=== PATIENT | female | born 1990 | race African-American/Black ===

== ENCOUNTER 2020-10-18 07:38 | Outpatient (CLI) | payer OTHER, SELFPAY ==
--- NOTE | 2020-10-18 | ECG_ITS ---
Measurements Intervals [place] Rate: 73 P: 50 MT: 175 QRS: 27 QRSD: 95 T: 4 QT: 378 QTc: 417 Interpretive Statements SINUS RHYTHM CONSIDER INFERIOR INFARCT, AGE INDETERMINATE ABNORMAL ECG Electronically Signed On 10-18-2020 8:41:24 CDT by Raul Balderas D.O.
[2020-10-18 08:19] LABS: Hematocrit 38.9 % (37.0-47.0); Hemoglobin 12.7 g/dL (12.0-15.0); Mean Corpuscular HGB Conc 32.6 g/dl (32-36); Mean Corpuscular Hemoglobin 31.4 pg (26-34); Mean Platelet Volume 10.1 fl (7.4-10.4); Platelet Count Result 327 k/mm3 (150-375); Red Blood Count 4.05 M/mm3 (4.2-5.4); Red Cell Distribution Width 12.3 % (11.5-14.5); White Blood Count 9.6 K/mm3 (4.5-10.0)
[2020-10-18 08:32] LABS: Alanine Aminotransferase 52 U/L (4-35); Albumin Level 3.9 g/dL (3.5-5.1); Alkaline Phosphatase 48 U/L (38-126); Anion Gap 9 mmol/L (8-16); Aspartate Amino Transferase 50 U/L (14-36); Bilirubin,Total 1.3 mg/dL (0.2-1.3); Blood Urea Nitrogen 10 mg/dL (7-17); Calcium 8.7 mg/dL (8.4-10.2); Carbon Dioxide 25 mmol/L (22-30); Chloride 104 mmol/L (98-107); Estimated Glomerular Filt Rate > 60; Glucose 78 mg/dL (65-105); Potassium 3.8 mmol/L (3.4-5.0); Sodium 138 mmol/L (137-145)
== END 2020-10-18 07:39 | disposition home or self-care (01) ==
DX: Z01.818 Encounter for other preprocedural examination (principal); E66.01 Morbid (severe) obesity due to excess calories; R94.31 Abnormal electrocardiogram [ECG] [EKG]
CPT/HCPCS: 36415; 80053; 85027; 93005

== ENCOUNTER 2021-05-22 18:12 | Emergency (ER) | payer OTHER, SELFPAY ==
[2021-05-22 18:27] VITALS: BP 105/63; PULSE 70; RESP 14; TEMP 37.4; O2SAT 99
--- NOTE | 2021-05-22 18:34 | ED.URI ---
HPI - URI/Sore Throat General Chief Complaint: Upper Respiratory Infection Stated Complaint: sore throat Time Seen by Provider: 05/22/21 18:34 Source: patient and family History of Present Illness HPI Narrative: Patient presents with a sore throat and feels that she has strep throat. Patient is tested in her place of employment for COVID and recently had a negative rapid COVID-19 test. Patient denies any other symptoms. No trouble swallowing and no drooling. Patient just request a strep throat test at this time. Related Data Home Medications Medication Instructions Recorded Confirmed No Home Medications 05/22/21 05/22/21 Allergies Allergy/AdvReac Type Severity Reaction Status Date / Time No Known Allergies Allergy Verified 05/22/21 18:42 Review of Systems Review of Systems: CONSTITUTIONAL: Denies chills, or sweats. Reports fever and generalized body aches EYES: Denies visual changes, redness, or discharge. ENT: Denies otalgia. Reports nasal congestion runny nose and sore throat CARDIOVASCULAR: Denies chest pain, palpitations, or edema. RESPIRATORY: Denies dyspnea. Reports occasional cough GASTROINTESTINAL: Denies abdominal pain, nausea, vomiting, or diarrhea. GENITOURINARY: Denies dysuria or hematuria. SKIN: Denies rash or itching. MUSCULOSKELETAL: Denies back pain, joint pain, or myalgia. Reports generalized body aches NEUROLOGIC: Denies headache, numbness, or weakness. PSYCHIATRIC: Denies anxiety or depression. PMFSH Comments At time of signature, agree with nursing past medical, surgical, social and family history. There is no relevant family history pertinent to the presenting complaint Exam Narrative: The patient is a well-developed, well-nourished in no acute distress. SKIN: Skin is warm and dry without erythema, swelling or exudate. There is good turgor. No tenting. HEAD: Atraumatic. Normocephalic. No temporal or scalp tenderness. EYES: Moist and bright. Sclera and conjunctivae normal. No discharge. PERRLA. Extraocular motions intact. Gross visual acuity intact. EARS: Pinna is normal shape and contour. Clear external auditory canals. TM pearly loya with good cone of light, no erythema or suppuration. Bilateral cerumen noted no gross hearing deficit. NOSE: pink, moist mucosa with good air movement. Clear rhinorrhea without nasal flaring. Septum midline. Mouth: moist mucous membranes. THROAT; mild erythema noted to posterior oropharynx with moderate postnasal drainage. Without exudate or ulceration.. Uvula midline. Normal movement of soft palate. NECK: Supple and nontender with full range of motion without discomfort. No meningeal signs. LUNGS: Equal and bilateral breath sounds without wheezes, rales or rhonchi. CHEST: The chest wall is without retractions or use of accessory muscles. HEART: Has a regular rate and rhythm without murmur, gallops, click or rub. ABDOMEN: Soft, nontender with positive active bowel sounds. No rebound tenderness. EXTREMITIES: Without cyanosis, clubbing or edema. Equal 2+ distal pulses and 2 second capillary refill noted. NEUROLOGIC: alert, active, . The patient moves all extremities with normal muscle strength. Normal muscle tone is noted. Normal coordination is noted. NO focal neurological findings noted. Course Course Level of Care: Express Care Visit Vital Signs Vital signs: Vital Signs Temperature 37.4 C 05/22/21 18:27 Pulse Rate 70 05/22/21 18:27 Respiratory Rate 14 05/22/21 18:27 Blood Pressure 105/63 05/22/21 18:27 Pulse Oximetry 99 05/22/21 18:27 Temperature 37.4 C 05/22/21 18:27 Pulse Rate 70 05/22/21 18:27 Respiratory Rate 14 05/22/21 18:27 Blood Pressure 105/63 05/22/21 18:27 Pulse Oximetry 99 05/22/21 18:27 Critical dx considered and discussed with pt. Educated patient on red flag s/s and to go to ED if s/s occur. Discussed with pt when to return to [facility] or primary care provider. Pt gave verbal undertstanding, all ques
== END 2021-05-22 18:50 | disposition home or self-care (01) ==
PROVIDERS: Emergency Provider Nurse Practitioner Family
DX: J02.9 Acute pharyngitis, unspecified (principal); J06.9 Acute upper respiratory infection, unspecified; Z98.84 Bariatric surgery status; Z86.16 Personal history of COVID-19
CPT/HCPCS: 87081; 87880; 99213; G0463

== ENCOUNTER 2022-08-23 21:10 | Emergency (ER) | payer OTHER, SELFPAY ==
--- NOTE | ~2022-08-23 | XR_ITS ---
EXAMINATION: XR humerus RT DATE: 08/23/2022 21:40 INDICATION: Blunt trauma to the right arm post fall TECHNIQUE: 1. Anteroposterior, two oblique and lateral views of the right elbow were obtained. 2. Anteroposterior and lateral views of the right humerus were obtained. COMPARISON: None. FINDINGS: Normal alignment at the right shoulder and elbow. There is sharp angulation of the cortex along one s haim of the proximal right radial head neck junction consistent with likely acute fracture. There appe ars be a fracture line which extends to the margin of the articular surface both no evident fracture gap or incongruity involving the articular surface. There appears to be likely secondary mild widenin g of the radial side of the radiocapitellar articulation resulting from mild impaction along the frac ture plane. Joint spaces are otherwise unremarkable. No other fractures identified. Suggestion of a s mall right elbow joint effusion with displacement of the anterior but not the posterior fat pad. IMPRESSION: 1. Mildly impacted fracture at the head neck junction of the proximal right radius with extension to the margin but not definitively involving the articular surface and with associated right elbow joint effusion. Reviewed, dictated and finalized at location A. IMPRESSION: 1. Mildly impacted fracture at the head neck junction of the proximal right rad ius with extension to the margin but not definitively involving the articular s urface and with associated right elbow joint effusion.
--- NOTE | ~2022-08-23 | XR_ITS ---
EXAMINATION: XR wrist RT min 3V DATE: 08/23/2022 21:40 INDICATION: Right wrist pain post fall TECHNIQUE: Posteroanterior, ulnar deviation, oblique, and lateral views of the right wrist were obtai yusra. COMPARISON: none FINDINGS: Alignment is normal. There is an irregular cortical contour along the proximal metadiaphyseal region of the fifth metacarpal but without sharply angulated cortex or linear lucency to suggest acute fract ure suggesting possible old healed fracture. No other lesions suspicious for fracture identified. Cassi nt spaces are normal. Soft tissues are unremarkable. IMPRESSION: 1. Possible old healed fracture of the fifth metacarpal. No other lesions suspicious for fracture haim ntified. Reviewed, dictated and finalized at location A. IMPRESSION: 1. Possible old healed fracture of the fifth metacarpal. No other lesions suspi cious for fracture identified.
[2022-08-23 21:12] VITALS: BP 118/58; PULSE 96; RESP 16; TEMP 36.6; O2SAT 100
--- NOTE | 2022-08-23 22:45 | ED.UPPEXIN ---
HPI - Extremity Injury (Upper) General Chief Complaint: Extremity Injury, Upper Stated Complaint: arm injury Time Seen by Provider: 08/23/22 22:17 Source: patient Mode of arrival: ambulatory Limitations: no limitations History of Present Illness HPI narrative: Patient is a 31-year-old female who presents to the ED with report of right elbow pain after a fall. Patient reports she tripped on concrete and lost her balance and fell forward. She tried to brace herself with her right hand/arm as she was carrying something with her left arm. She landed on her right arm and complains of pain mostly around her right elbow. Denies any significant pain to the left upper extremity, but did sustain abrasions to the forearm. No head injury or LOC. No prodromal symptoms prior to the fall. No other injuries. No numbness, tingling. Related Data Allergies Allergy/AdvReac Type Severity Reaction Status Date / Time No Known Allergies Allergy Verified 08/23/22 21:12 Review of Systems Review of Systems: CONSTITUTIONAL: Denies fever, chills, or sweats. MUSCULOSKELETAL: See HPI. NEUROLOGIC: Denies HI, LOC, headache, numbness, or weakness. All systems reviewed & are unremarkable except as noted in HPI and below PMFSH Past Medical History Medical History (Updated 08/23/22 @ 23:10 by Mere López PA-C) No pertinent past medical history Surgical History Surgical History (Updated 08/23/22 @ 23:10 by Mere López PA-C) No pertinent past surgical history Social History Social History (Updated 08/23/22 @ 23:10 by Mere López PA-C) Smoking status: Never smoker Exam Narrative: GENERAL: Well appearing, obese, non-toxic, in no acute distress. HEAD: Normocephalic, atraumatic. NECK: Supple. No adenopathy, no masses. RESPIRATORY: Airway patent, respirations nonlabored. CARDIOVASCULAR: Regular rate and rhythm without murmurs, rubs, or gallops. Radial pulses 2+ and equal bilaterally. MUSCULOSKELETAL: Limited range of motion of flexion, extension, supination/pronation of right elbow due to pain. Almost full flexion, but has discomfort with this. Tenderness to palpation over proximal forearm, lateral epicondyle of right elbow. Sensation intact. No tenderness along upper arm/shoulder, wrist. No snuffbox tenderness. No tenderness along left forearm. SKIN: Warm, dry, normal color. No rashes. Abrasion to left forearm/left wrist, no active bleeding. NEURO: A&O X3. Speech clear. Cranial nerves II-XII grossly intact. Steady gait. No ataxic movements. PSYCHIATRIC: Appropriate mood and affect. Normal interaction. Course Vital Signs Vital signs: Vital Signs Temperature 97.9 F 08/23/22 21:12 Pulse Rate 96 08/23/22 21:12 Respiratory Rate 16 08/23/22 21:12 Blood Pressure 118/58 L 08/23/22 21:12 Pulse Oximetry 100 08/23/22 21:12 Oxygen Delivery Room Air 08/23/22 21:12 Temperature 97.9 F 08/23/22 21:12 Pulse Rate 96 08/23/22 21:12 Respiratory Rate 16 08/23/22 21:12 Blood Pressure 118/58 L 08/23/22 21:12 Pulse Oximetry 100 08/23/22 21:12 Oxygen Delivery Room Air 08/23/22 21:12 MDM - Extremity Injury (Upper) MDM Narrative Medical decision making narrative: Patient's injury is consistent with musculoskeletal etiology. No signs of neurologic or vascular compromise on physical examination. Compartments are soft without signs of compartment syndrome. XRs showing impacted proximal radial fracture, joint effusion of elbow. X-ray of right wrist showing possible old fracture of fifth metacarpal. Patient without any tenderness in this region. Pain is consistent with exam and injury. Patient placed in arm sling in the ED. She is felt to be stable for discharge home and further outpatient management and treatment. Will provide orthopedic information for follow-up. Discussed RICE treatment and reasons to return. Will send pain medication to the pharmacy for management at home. Patient
[2022-08-23] MEDS: HYDROcodone/acetaminophen (*CRX) 5-325 MG TABLET 1 TAB PO (22:47)
[2022-08-23] MEDS: KETOROLAC (*BKC) 60 MG/2 ML VIAL IM (22:48)
== END 2022-08-23 23:04 | disposition home or self-care (01) ==
PROVIDERS: Emergency Provider Physician Assistant
DX: S52.181A Other fracture of upper end of right radius, initial encounter for closed fracture (principal); W01.0XXA Fall on same level from slipping, tripping and stumbling without subsequent striking against object, initial encounter
CPT/HCPCS: 73060; 73080; 73110; 96372; 99284; A4565; A9270; J1885